=== PATIENT | male | born 1990 | race Hispanic/Latino ===

== ENCOUNTER 2024-02-24 17:21 | Inpatient (IN) | payer OTHER ==
[~2024-02-24 17:21] MED LIST: ISOVUE-370 76% MDV (1 ML CHARGE) ONE; Iopamidol-370 76% 500 ML MDV (1 ML CHARGE) ONE
[2024-02-24] MEDS ORDERED: Morphine 4 MG/ML VIAL ONE ×2 (17:35→18:57)
[2024-02-24 18:46] LABS: #Basophils 0.04 10x3/uL (0.0-0.2); %Basophils 0.2 % (0.0-1.0); %Eosinophils 0.6 % (0.0-10.0); %Monocytes 6.8 % (0.0-10.0); %Neutrophils 83.8 % (42.0-75.0); Hematocrit 41.3 % (42.0-52.0); Hemoglobin 13.9 g/dL (14.0-18.0); Mean Corpuscular HGB CONC 33.7 g/dL (32.0-36.0); Mean Corpuscular Hemoglobin 28.1 pg (27.0-31.0); Mean Corpuscular Volume 83.4 fL (78.0-98.0); Mean Platelet Volume 11.2 fL (7.4-10.4); Platelet Count 204 10x3/uL (130-400); RBC Distribution Width 12.6 % (11.5-14.5); Red Blood Cell (RBC) Count 4.95 mill/uL (4.70-6.10)
[2024-02-24] MEDS ORDERED: Ondansetron PF 4 MG/2 ML Vial IVP PRN (18:58)
[2024-02-24] MEDS ORDERED: Ipratropium/Albuterol 3 ML NEB NEB PRN (18:58)
[2024-02-24 19:05] LABS: ALT (SGPT) 41 U/L (8-55); AST (SGOT) 40 U/L (5-34); Alkaline Phosphatase 84 U/L (40-110); Anion Gap 14 mmol/L (10-20); BUN (Urea Nitrogen) 13 mg/dL (8.9-20.6); Bilirubin, Total 0.5 mg/dL (0.2-1.2); Calc. Creatinine Clearance 0 mL/min (70-130); Calcium 8.5 mg/dL (7.8-10.44); Carbon Dioxide 21 mmol/L (22-29); Chloride 103 mmol/L (98-107); Estimated GFR 122; Globulin 2.9 g/dL (2.4-3.5); Glucose 104 mg/dL (70-105); Potassium 3.3 mmol/L (3.5-5.1); Protein, Total 6.9 g/dL (6.0-8.3); Sodium 135 mmol/L (136-145)
[2024-02-24] MEDS ORDERED: Acetaminophen 325 MG TAB PO SCH (20:00)
[2024-02-24] MEDS: Gabapentin 300 MG CAP PO SCH (21:56)
[2024-02-24] MEDS: Famotidine/PF 20 mg/2ml Vial SLOW IVP SCH (22:56)
[2024-02-24] MEDS: traMADol HCl 50 MG TAB PO SCH (22:57)
[2024-02-24] MEDS: Cyclobenzaprine 10 MG TAB PO PRN (22:59)
[2024-02-24] MEDS: Sodium Chloride 0.9% 1,000 ML IV SCH (23:00)
[2024-02-24] MEDS: Acetaminophen 500 MG TAB PO SCH (23:05)
[2024-02-24] MEDS: Transdermal Patch Removal TOP SCH (23:15)
[2024-02-24] MEDS: Lactulose 20 GM (30 mL) UDCUP PO SCH (23:16)
[2024-02-24] MEDS: Senokot S 8.6-50 MG TAB PO SCH (23:16)
[2024-02-24 23:45] VITALS: BMI 27.7
[2024-02-25] MEDS: Morphine 2 MG/ML VIAL SLOW IVP PRN (03:26)
[2024-02-25 07:03] LABS: #Basophils 0.03 10x3/uL (0.0-0.2); %Basophils 0.3 % (0.0-1.0); %Eosinophils 0.6 % (0.0-10.0); %Lymphocytes 16.5 % (21.0-51.0); %Monocytes 11.7 % (0.0-10.0); %Neutrophils 70.5 % (42.0-75.0); Hematocrit 39.8 % (42.0-52.0); Hemoglobin 13.1 g/dL (14.0-18.0); Mean Corpuscular HGB CONC 32.9 g/dL (32.0-36.0); Mean Platelet Volume 11.5 fL (7.4-10.4); Platelet Count 203 10x3/uL (130-400); Red Blood Cell (RBC) Count 4.68 mill/uL (4.70-6.10)
[2024-02-25 07:06] LABS: INR-International Normal Ratio 1.1; Prothrombin Time 14.2 sec (12.0-14.7)
[2024-02-25 07:07] LABS: PTT 29.8 sec (22.9-36.1)
[2024-02-25] MEDS ORDERED: Electrolyte Replacement Protocol 1 EACH FS SCH (07:30)
[2024-02-25 07:48] LABS: Anion Gap 13 mmol/L (10-20); BUN (Urea Nitrogen) 9 mg/dL (8.9-20.6); Calc. Creatinine Clearance 205 mL/min (70-130); Calcium 8.4 mg/dL (7.8-10.44); Carbon Dioxide 22 mmol/L (22-29); Chloride 106 mmol/L (98-107); Estimated GFR 124; Glucose 95 mg/dL (70-105); Potassium 3.9 mmol/L (3.5-5.1); Sodium 137 mmol/L (136-145)
[2024-02-25] MEDS: Lidocaine 4% Patch TD SCH (08:58)
[2024-02-25] MEDS: Potassium Chloride 20 MEQ TAB PO SCH (08:58)
[2024-02-25 10:46] VITALS: BMI 27.7
[2024-02-25] MEDS: traMADol HCl 50 MG TAB PO PRN (11:55)
[2024-02-25 15:44] LABS: Potassium 4.1 mmol/L (3.5-5.1)
[2024-02-26 05:49] LABS: Magnesium 1.8 mg/dL (1.6-2.6)
[2024-02-26] MEDS: Magnesium 2 GM/50 ML(in water) 2 GM in Premix 1 BAG IVPB SCH (09:04)
[2024-02-26 14:03] VITALS: BP 138/95
[2024-02-26 14:21] VITALS: TEMP 98.4
== END 2024-02-26 18:15 | disposition home or self-care (01) | DRG 200 ==
LOC: ERS 17:21 → SJJU 20:32 → OBSVTOIN 20:32
PROVIDERS: ADMIT Specialist; ATTEND Specialist
DX: S27.0XXA Traumatic pneumothorax, initial encounter (principal); S22.42XA Multiple fractures of ribs, left side, initial encounter for closed fracture; S27.321A Contusion of lung, unilateral, initial encounter; X58.XXXA Exposure to other specified factors, initial encounter; Z98.890 Other specified postprocedural states; S42.022A Displaced fracture of shaft of left clavicle, initial encounter for closed fracture; Z79.899 Other long term (current) drug therapy
CPT/HCPCS: 36415; 70450; 70498; 71045; 71260; 74177; 80048; 80053; 83735; 85025; 85610; 85730; 86850; 86900; 86901; 96374; 96376; J2270; J2272; J3475; J7050; Q9967; S0028